=== PATIENT | female | born 2000 | race Caucasian/White ===

== ENCOUNTER 2024-05-04 17:00 | Emergency (ER) | payer BC, SELFPAY ==
[2024-05-04 17:03] VITALS: BP 126/80
[2024-05-04 19:55] VITALS: BMI 26.5
[2024-05-04 20:07] VITALS: BP 120/81
[2024-05-04 20:14] LABS: % Basophils 0.6 % (0-2); % Eosinophils 3.3 % (0-6); % Immature Granulocytes 0.3 % (0-0.5); % Lymphocytes 37.2 % (20.5-51.1); % Monocytes 6.9 % (1.7-9.3); % Neutrophils 51.7 % (42.2-75.2); Absolute Eosinophils 0.2 10^3/uL (0-0.7); Absolute Lymphocytes 2.6 10^3/uL (1.2-3.4); Absolute Monocytes 0.5 10^3/uL (0.1-0.6); Absolute Neutrophils 3.6 10^3/uL (1.4-6.5); Hematocrit 43.3 % (37.0-47.0); Mean Corp Hgb Conc. 32.3 g/dL (33.0-37.0); Mean Corpuscular Volume 80.3 fL (81.0-99.0); Mean Platelet Volume 8.7 fL (7.4-10.4); Nucleated Red Blood Cells % 0 %; Platelet Count 323 10^3/uL (130-400); Red Blood Cell Count 5.39 10^6/uL (4.20-5.40); Red Cell Dist. Width 13.1 % (11.5-14.5)
--- NOTE | 2024-05-04 20:28 | ED.GENMED ---
History of Present Illness
General
Chief Complaint: Abdominal Pain
Source: patient
Exam Limitations: none
Time Seen by Provider: 05/04/24 19:57
History of Present Illness
History of Present Illness:
24yoF with a history of a prior gastric sleeve procedure presenting for evaluation of abdominal pain. She started with abdominal pain when she woke up this morning. She reports a constant stabbing pain in her epigastrium. She is also having some
mid back discomfort as well. Pain has been constant throughout the day today and intermittently worsens. She has taken OTC antacids without improvement. She denies any fevers, vomiting, diarrhea, dysuria, chest pain. Patient is currently on her
menstrual period. Of note, patient was seen in an emergency department in [place] 2 months ago for right upper quadrant pain. She was diagnosed with gallstones at that time. She followed up with general surgery who is not planning on a
cholecystectomy. She is currently on Wegovy. She had 2 alcoholic drinks yesterday for New Years Leida.
Phy Exam
General Physical Exam
General Presentation: well appearing and no apparent distress
General age: appears stated age
General Skin: warm and dry
General Habitus: normal
General Mental: alert
ENT Exam
ENT Exam: normocephalic
Cardiovascular Exam
Cardiovascular Exam: regular rate/rhythm and no murmur
Pulmonary Exam
Pulmonary Exam: lungs clear, no respiratory distress, no rales, no crackles and no rhonchi
Gastrointestinal Exam
Gastrointestinal Exam: soft, non distended and other (+Tenderness in epigastric and LUQ region. Abdomen soft, non-distended. No guarding or rebound.)
Neurological Exam
Neurological Exam: alert
[place] Coma Scale
Eye Opening: Spontaneous
Verbal Response: Oriented
Motor Response: Obeys Commands
GCS Total Score: 15
Skin Exam
Skin Exam: normal color and warm/dry
Psychiatric Exam
Psychiatric Exam: normal mood/affect
Course
Orders/Labs/Results
Orders:
Orders
05/04/24 17:05
Electrocardiogram (*1) Urgent
Reason for Study: Abdominal Pain
EKG- Treatment ONCE
05/04/24 20:05
Complete Blood Count/With Diff Urgent
Comprehensive Metabolic Panel Urgent
HCG, Serum Qualitative Screen Urgent
Comment: ADDON
Lipase Urgent
Troponin I Urgent
05/04/24 20:25
Add On- LAB Urgent
Tests Added?: qualitative HCG
CT Abd/pel W Iv And Oral Contr Urgent
Comment:
Reason For Exam: Epigastric pain
Iohexol [Omnipaque] See Protocol PO NOW STA
05/04/24 21:34
Ketorolac [Toradol] 15 mg IV NOW STA
Abnormal Lab Results
05/04/24
20:05
MCV 80.3 L fL
(81.0-99.0)
MCH 26.0 L pg
(27.0-31.0)
MCHC 32.3 L g/dL
(33.0-37.0)
05/04/24 20:05
05/04/24 20:05
Vital Signs
Initial and Last Documented VS:
Initial Vital Signs
Temp Pulse Resp BP Pulse Ox
97.9 F 83 18 126/80 97
05/04/24 17:03 05/04/24 17:03 05/04/24 17:03 05/04/24 17:03 05/04/24 17:03
Last Documented Vital Signs
Temp Pulse Resp BP Pulse Ox
97.9 F 83 18 117/82 100
05/04/24 17:03 05/04/24 17:03 05/04/24 17:03 05/04/24 22:00 05/04/24 22:45
MDM/Problems Addressed
Differential Diagnosis Includes:
24yoF here with epigastric pain that started this morning. Otherwise asymptomatic. Hx of gastric sleeve and gallstones. Currently on Wegovy. VSS. She is well appearing in no distress. No signs of peritonitis on abdominal exam. Differential diagnosis
includes but is not limited to: gastritis, PUD, pancreatitis, biliary colic, nonspecific abdominal pain
Initial ED plan: Check abdominal labs, troponin/EKG, HCG, and CT abdomen with IV/PO contrast.
*EKG
Interpreted by ED Provider?: Yes
EKG Intrepretation Date: 05/04/24
Heart Rate: 73
Rate: normal
Rhythm: sinus
[place]: normal axis
Interval: normal interval
QRS Pattern: normal QRS and low voltage
Ischemia: no ischemia
*Critical Care Note
Total Time (30-74mins, 75-104mins- exclusive of procedures): Not Applicable
Update Note
Update Note:
Labs overall unremarkable including normal white count, lipase, LFTs. EKG shows NSR without ischemic changes and troponin WNL. Preliminary [facility] report is negative for acute findings. Pain did improve significantly with IV Toradol.
Unclear etiology of symptoms. Possibly gastritis although pain did not improve with antacids. 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 ED return precautions discussed. She was
discharged in stable condition.
ED Attending Note
-
Portions of this chart may have been created with voice recognition software.� Occasional wrong word or��sound alike� substitutions may have occurred due to the inherent limitations of voice recognition software.
Discharge Plan
Departure
Patient Disposition: Home (Routine Discharge)
Date of Disposition: 05/04/24
Time of Disposition: 23:47
Patient with high blood pressure during this ER visit?: No
Discharge Problem:
Acute epigastric pain
Instructions: Abdominal pain in adults - Discharge instructions
Referrals:
[facility] [Other]
Activity Restrictions/Additional Instructions:
Please call your diversified crops supervisor and family doctor tomorrow to schedule a follow-up appointment. Return to the ER with any new or worsening symptoms.
Interventions
Interventions:
*Risk Screen - Suicide Last Done: 05/04/24 17:03
*General Assessment Last Done: 05/04/24 17:03
*Neglect/Abuse Screening Last Done: 05/04/24 17:03
ED- Fall Risk Assessment Last Done: 05/04/24 19:55
*ED COVID-19 Vaccine History Last Done: 05/04/24 17:03
*Nursing Disposition Last Done: 05/05/24 00:40
VD-Xifmwe-Tzhpaqrffy Assessment Last Done: 05/04/24 19:55
Discharge Date and Time
Discharge Date/Time: 05/05/24 00:40
Print Language: LAO
[2024-05-04 20:30] LABS: ALT (SGPT) 15 U/L (0-35); AST (SGOT) 22 U/L (14-36); Albumin 4.7 g/dl (3.5-5.0); Alkaline Phosphatase 50 U/L (38-126); Blood Urea Nitrogen 14 mg/dl (7-17); Calcium 9.4 mg/dl (8.4-10.2); Carbon Dioxide 28 mmol/L (22-30); Chloride 101 mmol/L (98-107); Estimated Creatinine Clearance 103 ml/min; Glucose 94 mg/dl (70-99); Lipase 126 U/L (23-300); Potassium 4.1 mmol/L (3.5-5.1); Sodium 137 mmol/L (135-145); Total Bilirubin 0.7 mg/dl (0.2-1.3); Total Protein 7.7 g/dl (6.3-8.2); eGFR > 60.00
[2024-05-04] MEDS: OMNIPAQUE 50 ML PO (20:36)
[2024-05-04 20:37] LABS: Troponin I < 0.012 ng/ml
[2024-05-04 20:43] LABS: HCG, Serum Qualitative Screen Negative
[2024-05-04 21:01] VITALS: BP 112/76
[2024-05-04] MEDS: TORADOL 15 MG IV (21:37)
[2024-05-04 22:00] VITALS: BP 117/82
== END 2024-05-05 00:40 | disposition home or self-care (01) ==
LOC: EMR 17:00
PROVIDERS: EMERGENCY PHYSICIAN Student in an Organized Health Care Education/Training Program
DX: R10.13 Epigastric pain (principal); M54.9 Dorsalgia, unspecified; K80.20 Calculus of gallbladder without cholecystitis without obstruction; Z98.84 Bariatric surgery status
CPT/HCPCS: 99284; 96374; 74177; 80053; 83690; 84484; 84703; 85025; 93005; Q9967